=== PATIENT | female | born 1970 | race Caucasian/White ===

== ENCOUNTER → 2016-11-10 | Outpatient (CLI) | payer OTHER, BC ==
--- NOTE | 2016-11-10 10:00 | RAD ---
EXAM: DIGITAL SCREEN BILAT W/CAD HISTORY: Routine Screening. COMPARISON: None Standard mammographic views are obtained of the bilateral breasts. This study was interpreted with the benefit of Computerized Aided Detection (CAD). FINDINGS: The breast parenchyma Is heterogenously dense, which could reduce sensitivity of mammography. Breast parenchyma level III.. Within the left breast posteriorly just superficial to the pectoralis muscle on the MLO view at the superior aspect of the nipple line there is a asymmetry identified. The correlate is not well seen on the cc view but may be located laterally. Within the retroareolar region of the right breast there is a small asymmetry seen predominantly on the cc view. IMPRESSION: There are asymmetries seen within the bilateral breasts. This could be the patient baseline glandular pattern but given that there is no comparison available for review recommend that the patient return for diagnostic mammogram of the bilateral breasts to further evaluate and a focused ultrasound may be necessary at that time in addition. BI-RADS CATEGORY: 0 NEED ADD'L IMAGE/PRIOR MAMMO RECOMMENDED FOLLOW-UP: ADD ADDITIONAL IMAGING PQRS compliance statement: Patient information was entered into a reminder system with a target due date for the next mammogram. Mammography is a sensitive method for finding small breast cancers, but it does not detect them all and is not a substitute for careful clinical examination. A negative mammogram does not negate a clinically suspicious finding and should not result in delay in biopsying a clinically suspicious abnormality. "Our facility is accredited by the [employer] Mammography [employer]."
== END | disposition home or self-care (01) ==
LOC: MAMMO 08:39
PROVIDERS: ATTEND Obstetrics & Gynecology
DX: Z12.31 Encounter for screening mammogram for malignant neoplasm of breast (principal); N64.89 Other specified disorders of breast
CPT/HCPCS: G0202; 77067

== ENCOUNTER → 2016-11-10 | Outpatient (CLI) | payer OTHER, BC ==
--- NOTE | 2016-11-10 14:06 | RAD ---
EXAM: BREAST BILATERAL, DIGITAL DIAGNOSTIC BILATERAL HISTORY: Possible asymmetry on screening mammogram COMPARISON: Screening mammogram from earlier same day Multiple spot compression views were obtained bilaterally. This study was interpreted with the benefit of Computerized Aided Detection (CAD). FINDINGS: The breast parenchyma Is heterogenously dense, which could reduce sensitivity of mammography. Breast parenchyma level III.. There is some dense breast tissue seen within the right retroareolar region without a definite mass seen on spot compression imaging. Within the left breast on the MLO view just superior to the nipple line approximately 6-7 cm from the nipple there is a small asymmetry identified. The definite correlate is not seen on the cc view. Secondary to these findings the patient was then sent to ultrasound to further evaluate the region. Ultrasound findings: Within the retroareolar region of the right breast there is a small amount of fluid seen within the ducts without a mass identified. No drainable fluid collection. Within the left breast at the 2:00 position 4 cm from the nipple there is a 4 x 1 mm well-circumscribed hypoechoic mass seen with increased through transmission. IMPRESSION: On mammography there is dense breast tissue seen in the right retroareolar region without a definite mass. There is some fluid seen within the ducts within this region. Within the left breast on the MLO view there is a persistent asymmetry seen on spot compression images. This could be secondary to some prominent glandular tissue but recommend that the patient return for a repeat diagnostic mammogram in 6 months to ensure no increase in the structure. An ultrasound can be repeated at that time as well. Within the left breast at the 2:00 position there is a small circumscribed mass identified with increased through transmission. Could be secondary to a small cyst although on some of the images there is some mild internal echoes therefore some component of debris is possible. This can be followed in 6 months to ensure no growth. BI-RADS CATEGORY: 3 PROBABLE BENIGN-SHORT TERM F/U RECOMMENDED FOLLOW-UP: 6M 6 MONTH FOLLOW-UP PQRS compliance statement: Patient information was entered into a reminder system with a target due date for the next mammogram. Mammography is a sensitive method for finding small breast cancers, but it does not detect them all and is not a substitute for careful clinical examination. A negative mammogram does not negate a clinically suspicious finding and should not result in delay in biopsying a clinically suspicious abnormality. "Our facility is accredited by the [employer] Mammography [employer]."
== END | disposition home or self-care (01) ==
LOC: MAMMO 13:10
PROVIDERS: ATTEND Obstetrics & Gynecology
DX: N63 Unspecified lump in breast (principal); N64.89 Other specified disorders of breast; N64.4 Mastodynia; R92.2 Inconclusive mammogram
CPT/HCPCS: 76641; G0204; 77066

== ENCOUNTER → 2017-04-02 | Outpatient (CLI) | payer OTHER, BC ==
--- NOTE | 2017-04-02 11:54 | RAD ---
DATE: 04/02/2017 EXAM: DIGITAL DIAGNOSTIC BILATERAL, BREAST LEFT HISTORY: Follow-up breast asymmetries COMPARISON: 11/10/2016 This study was interpreted with the benefit of Computerized Aided Detection (CAD). The breast parenchyma is heterogeneously dense, which could reduce sensitivity of mammography. Breast parenchyma level C. FINDINGS: No new or enlarging breast densities are seen. No suspicious microcalcifications are evident. Left breast ultrasound, 04/02/2017: A targeted ultrasound exam of the left breast was performed at the 2:00 location where a small elongated hypoechoic nodule was seen on the 11/10/2016 exam. Heterogeneous fibroglandular shadows are present. The small hypoechoic nodule is no longer visualized. It probably represented a complicated cyst which has resolved. No abnormality is currently seen in this region. IMPRESSION: 1. Stable mammograms. Follow-up bilateral mammography in 6 months is suggested. 2. The small sonographic abnormality previously seen in the left breast is no longer visible. BI-RADS CATEGORY: 3 PROBABLY BENIGN FINDING(S)-SHORT INTERVAL FOLLOW-UP SUGGESTED RECOMMENDED FOLLOW-UP: 6M 6 MONTH FOLLOW-UP PQRS compliance statement: Patient information was entered into a reminder system with a target due date for the next mammogram. Mammography is a sensitive method for finding small breast cancers, but it does not detect them all and is not a substitute for careful clinical examination. A negative mammogram does not negate a clinically suspicious finding and should not result in delay in biopsying a clinically suspicious abnormality. "Our facility is accredited by the [employer] Mammography [employer]."
== END | disposition home or self-care (01) ==
LOC: MAMMO 10:55
PROVIDERS: ATTEND Obstetrics & Gynecology
DX: N64.89 Other specified disorders of breast (principal)
CPT/HCPCS: 76641; G0204; 77066

== ENCOUNTER → 2017-08-19 | Outpatient (CLI) | payer BC, OTHER | END | disposition home or self-care (01) | LOC: US 15:00 | DX: R92.2 Inconclusive mammogram (principal) | CPT/HCPCS: 76641 ==